=== PATIENT | female | born 1965 | race Caucasian/White ===

== ENCOUNTER 2016-06-29 16:08 | Outpatient (CLI) ==
[2013-11-12 14:37] VITALS: BMI 28.8
--- NOTE | 2016-06-29 16:34 | DI ---
EXAM: Three x-rays of the left shoulder. Comparison: Chest x-ray performed on 03/28/2011. Reason for study: Left shoulder pain, pain in lateral aspect of clavicle. FINDINGS: No acute fracture or dislocation. The humeral head articulates with the bony glenoid. T he acromioclavicular joint spaces well maintained. The clavicle is intact. The scapular Y-view is u nremarkable. Impression: No acute fracture or dislocation in the left shoulder.
== END 2016-06-29 16:09 | disposition home or self-care (01) ==
LOC: RAD 16:08
PROVIDERS: ATTEND Family Medicine
DX: M25.512 Pain in left shoulder (principal)

== ENCOUNTER 2016-07-31 09:27 | Emergency (ER) ==
[2016-07-31 09:32] VITALS: BP 163/89; TEMP 98.2; BMI 31.7
[2016-07-31] MEDS: LIDOCAINE 1 % AMP 5 ML (SUTURES) SUBCUT STA (09:57)
--- NOTE | 2016-07-31 09:57 | ED.PDOC ---
General ED Provider: Dr. SONNY TAY-ER Chief Complaint: Finger Pain/Injury Stated Complaint: my fingernail edge is swollen and red Time Seen by Physician: 09:55 Mode of Arrival: Walk-In Information Source: Patient Exam Limitations: No limitations Primary Care Provider: SONNY TAY Nursing and Triage Documentation Reviewed and Agree: Yes Skin Complaint Exam - Skin/Soft Tissue Complaint/Exam Onset/Duration: 2 days Symptoms Are: Still present Timing: Constant Initial Severity: Mild Current Severity: Mild Location: lateral edge of the right middle finger Character: Reports: Redness, Swelling, Raised, Painful Aggravating: Reports: Touch Alleviating: Reports: None Associated Signs and Symptoms: Reports: Tenderness. Denies: Fever, Chills, Itching, Drainage, Bruising, Red streaks, Joint swelling Related History: Reports: Similar episode Related Surgical History: Reports: None Recent Exposure to Others w/Similar Symptoms: No Skin Findings: Present: Erythema, Induration, Pustules Joint Tenderness Present: No Differential Diagnoses: Abscess, Other Review of Systems - Review Of Systems Constitutional: Reports: No symptoms Eyes: Reports: No symptoms Ears, Nose, Mouth, Throat: Reports: No symptoms Respiratory: Reports: No symptoms Cardiac: Reports: No symptoms GI: Reports: No symptoms : Reports: No symptoms Musculoskeletal: Reports: No symptoms Skin: Reports: Change in hair/nails Neurological: Reports: No symptoms Endocrine: Reports: No symptoms Hematologic/Lymphatic: Reports: No symptoms All Other Systems: Reviewed and Negative Past Medical History - Past Medical History Endocrine: Reports: Unknown Cardiovascular: Reports: Unknown Respiratory: Reports: Unknown Hematological: Reports: Unknown Gastrointestinal: Reports: Unknown Genitourinary: Reports: Unknown Neuro/Psych: Reports: Unknown Musculoskeletal: Reports: Unknown Cancer: Reports: Unknown Last Menstrual Period: 3 weeks ago - Surgical History General Surgical History: Reports: Unknown - Family History Family History: Reports: Unknown - Social History Smoking Status: Never smoker Hx Substance Use: No Alcohol Screening: None Physical Exam - Physical Exam Appearance: Well-appearing, No pain distress, Well-nourished Pain Distress: Mild Eyes: NICK, EOMI, Conjunctiva clear ENT: Ears normal, Nose normal, Oropharynx normal Neck: Supple Respiratory: Airway patent, Breath sounds clear, Breath sounds equal, Respirations nonlabored Cardiovascular: RRR, Pulses normal, No rub, No murmur GI/: Soft, Nontender, No masses, Bowel sounds normal, No Organomegaly Musculoskeletal: Normal strength, ROM intact, No edema, No calf tenderness Skin: Warm Neurological: Sensation intact, Motor intact, Reflexes intact, Cranial nerves intact, Alert, Oriented Psychiatric: Affect appropriate, Mood appropriate Procedures - Incision and Drainage Site: right middle finger Instrument Used: 11 Blade I & D Procedure: Yes: Hibiclens Prep Lidocaine Used: Yes Type of Drainage: Present: Pus, Blood Irrigated: No Critical Care Note - Critical Care Note Total Time (mins): 0 Course - Course Orders, Labs, Meds: Orders Category Date Time Status Wound [ED WOUND CARE] .ONCE EMERGENCY 07/31/16 09:53 Active Vital Signs: Temp Pulse Resp BP Pulse Ox 07/31/16 09:27 98.2 F 116 H 20 163/89 H 99 Departure - Departure Time of Disposition: 09:57 Disposition: HOME SELF-CARE Discharge Problem: Paronychia Qualifiers: Laterality: right Qualifier Code: (L03.011) Cellulitis of right finger Instructions: Paronychia (ED) Condition: Good Pt referred to PMD for follow-up: Yes Additional Instructions: continue antbx--use bacitracin ointment on wound bid --norco 7.5mg q 4hrs prn pain #6--keep elevated--call my office on tuesday for cultdure results Allergies/Adverse Reactions: Allergies Penicillins Adverse Reaction (Verified 07/31/16 09:32) Sulfa (Sulfonamide Antibiotics) Adverse Reaction (Verified 07/31/16 09:32) Home Medications: Ambulatory Orders Diltiazem HCl [Cardizem] 2 tab PO BID 04/23/13 Pantoprazole Sodium [Protonix] 1 tab PO BID 04/23/13 Losartan Potassium [Cozaar] 100 mg PO DAILY 11/12/13 Norethindrone AC-Eth Estradiol [Loestrin] 1 each PO DAILY 11/12/13 Cyanocobalamin (Vitamin B-12) [Vitamin B-12] 1,000 mcg PO DAILY 11/13/15 Disposition Discussed With: Patient
== END 2016-07-31 10:17 | disposition home or self-care (01) ==
LOC: ED 09:27
DX: L03.011 Cellulitis of right finger (principal)
CPT/HCPCS: 87070; 99282

== ENCOUNTER 2016-09-07 07:58 | Outpatient (CLI) | payer OTHER ==
--- NOTE | 2016-09-08 09:27 | MAMMO ---
EXAM: Bilateral digital screening mammogram History: Screening Comparison: Bilateral mammogram 09/04/2015 Findings: MLO and CC views of bilateral breasts demonstrate scattered fibroglandular breast parench yma. Stable benign right breast calcifications. There are no dominant masses, no suspicious microc alcifications and no architectural distortions Impression: Benign stable mammogram. Recommend followup routine screening mammography in 1 year. BIRADS 2
== END 2016-09-07 07:59 | disposition home or self-care (01) ==
LOC: RAD 07:58
PROVIDERS: ATTEND Advanced Practice Midwife
DX: Z12.31 Encounter for screening mammogram for malignant neoplasm of breast (principal)

== ENCOUNTER 2016-09-15 11:05 | Outpatient (CLI) ==
[2016-09-15 11:20] LABS: BILIRUBIN,URINE Negative (NEGATIVE); KETONES,URINE Negative (NEGATIVE); LEUKOCYTE ESTERASE ,URINE 1+ (NEGATIVE); NITRITE,URINE Positive (NEGATIVE); PH,URINE 5.5 (5-9); PROTEIN,URINE Negative (NEGATIVE); URINE, BLOOD Negative (NEGATIVE)
[2016-09-15 11:27] LABS: ADD URINE MICROSCOPIC YES
[2016-09-15 11:28] LABS: BACTERIA,URINE 2+ (NOT PRESENT)
== END 2016-09-15 11:06 | disposition home or self-care (01) ==
LOC: LAB 11:05
PROVIDERS: ATTEND Family Medicine
DX: R30.0 Dysuria (principal)
CPT/HCPCS: 81001; 87086; 87186

== ENCOUNTER 2016-10-06 09:47 | Outpatient (CLI) ==
[2016-10-06 09:59] LABS: BILIRUBIN,URINE Negative (NEGATIVE); KETONES,URINE Negative (NEGATIVE); LEUKOCYTE ESTERASE ,URINE Trace (NEGATIVE); NITRITE,URINE Negative (NEGATIVE); PROTEIN,URINE Negative (NEGATIVE); URINE, BLOOD 2+ (NEGATIVE)
[2016-10-06 10:23] LABS: ADD URINE MICROSCOPIC YES
[2016-10-06 10:25] LABS: BACTERIA,URINE 1+ (NOT PRESENT)
== END 2016-10-06 09:48 | disposition home or self-care (01) ==
LOC: LAB 09:47
PROVIDERS: ATTEND Family Medicine
DX: R30.0 Dysuria (principal)
CPT/HCPCS: 81001; 87086

== ENCOUNTER 2016-10-15 10:31 | Outpatient (CLI) ==
[2016-10-15 10:41] LABS: BILIRUBIN,URINE Negative (NEGATIVE); KETONES,URINE Negative (NEGATIVE); LEUKOCYTE ESTERASE ,URINE Trace (NEGATIVE); NITRITE,URINE Negative (NEGATIVE); PROTEIN,URINE Negative (NEGATIVE); URINE, BLOOD Trace-intact (NEGATIVE)
[2016-10-15 10:55] LABS: ADD URINE MICROSCOPIC YES
[2016-10-15 10:58] LABS: BACTERIA,URINE 1+ (NOT PRESENT)
== END 2016-10-15 10:32 | disposition home or self-care (01) ==
LOC: LAB 10:31
PROVIDERS: ATTEND Family Medicine
DX: R30.0 Dysuria (principal)
CPT/HCPCS: 81001; 87086

== ENCOUNTER 2016-12-02 07:59 | Outpatient (CLI) ==
[2016-12-02 08:30] LABS: BASOPHILS # (AUTO) 0.1 K/uL (0-0.2); BASOPHILS % (AUTO) 0.8 % (0.0-3.0); EOSINOPHILS # (AUTO) 0.1 K/ul (0.0-0.7); EOSINOPHILS % (AUTO) 1.8 % (0.0-7.0); HEMATOCRIT 38.5 % (37.0-47.0); HEMOGLOBIN 12.6 g/dl (12.0-16.0); IMMATURE GRANULOCYTE % (AUTO) 0.6 % (0.0-5.0); LYMPHOCYTES # (AUTO) 1.7 K/uL (0.60-3.4); LYMPHOCYTES % (AUTO) 26.5 (10.0-50.0); MEAN CORPUSCULAR HEMOGLOBIN 26.2 pg (27.0-31.0); MEAN CORPUSCULAR HGB CONC 32.7 (31.8-35.4); MONOCYTES # (AUTO) 0.5 K/uL (0.4-2.0); NEUTROPHILS # (AUTO) 4.1 K/ul (2.0-6.9); NEUTROPHILS % (AUTO) 62.3; PLATELET COUNT 269 10^3/uL (140-440); RED BLOOD COUNT 4.81 10^6/ul (4.20-5.40); WHITE BLOOD COUNT 6.53 K/ul (4.6-10.2)
[2016-12-02 08:47] LABS: ALBUMIN 3.3 g/dL (3.4-5.0); ALBUMIN/GLOBULIN RATIO 0.79; ANION GAP 15.2; BILIRUBIN,TOTAL 0.43 mg/dL (0.00-1.20); BUN/CREATININE RATIO 15.73; CALCIUM 9.7 mg/dL (8.2-10.2); CREATININE 0.89 mg/dL (0.60-1.30); POTASSIUM 4.2 mmol/L (3.5-5.10); TOTAL PROTEIN 7.5 g/dL (6.4-8.2)
== END 2016-12-02 08:00 | disposition home or self-care (01) ==
LOC: LAB 07:59
PROVIDERS: ATTEND Family Medicine
DX: Z00.00 Encounter for general adult medical examination without abnormal findings (principal)
CPT/HCPCS: 36415; 80053; 80061; 80323; 85025

== ENCOUNTER 2017-04-15 13:49 | Outpatient (CLI) | payer OTHER | END 2017-04-15 13:50 | disposition home or self-care (01) | LOC: LAB 13:49 | PROVIDERS: ATTEND Family Medicine | DX: R30.0 Dysuria (principal) | CPT/HCPCS: 81001; 87086 ==

== ENCOUNTER 2017-07-04 11:30 | Outpatient (CLI) ==
--- NOTE | 2017-07-04 12:46 | DI ---
Exam: Two x-rays of the chest. Comparison: 03/28/2011. Reason for exam: Bronchitis. FINDINGS: No pneumothorax, pleural effusion, or focal consolidation. The cardiac silhouette is not enlarged. The imaged osseous structures appear grossly unremarkable without acute fracture. Impression: No acute cardiopulmonary process.
== END 2017-07-04 11:31 | disposition home or self-care (01) ==
LOC: RAD 11:30
PROVIDERS: ATTEND Family Medicine
DX: J40 Bronchitis, not specified as acute or chronic (principal)

== ENCOUNTER 2017-07-25 14:12 | Outpatient (CLI) | END 2017-07-25 14:13 | disposition home or self-care (01) | LOC: LAB 14:12 | PROVIDERS: ATTEND Family Medicine | DX: R63.1 Polydipsia (principal) | CPT/HCPCS: 36415; 82947; 83036 ==

== ENCOUNTER 2017-09-14 07:06 | Outpatient (CLI) | payer OTHER ==
--- NOTE | 2017-09-14 09:26 | MAMMO ---
EXAM: Bilateral digital screening mammogram (2-D and 3-D) History: Screening Comparison: Bilateral mammogram 09/07/2016 Findings: MLO and CC views of bilateral breasts demonstrate scattered fibroglandular breast parenchy ma. Stable benign calcifications within the right breast. CAD was reviewed by the radiologist. Srikanth osynthesis was performed. There are no dominant masses and no suspicious microcalcifications. No arc hitectural distortions Impression: Benign stable mammogram. Recommend followup routine screening mammography in 1 year. BIRADS 2
== END 2017-09-14 07:07 | disposition home or self-care (01) ==
LOC: RAD 07:06
PROVIDERS: ATTEND Nurse Practitioner Women's Health
DX: Z12.31 Encounter for screening mammogram for malignant neoplasm of breast (principal)
CPT/HCPCS: 77067

== ENCOUNTER 2017-10-31 06:38 | Outpatient (CLI) | END 2017-10-31 06:39 | LOC: LAB 06:38 | PROVIDERS: ATTEND Emergency Medicine | DX: E11.9 Type 2 diabetes mellitus without complications (principal); E78.5 Hyperlipidemia, unspecified; I10 Essential (primary) hypertension | CPT/HCPCS: 36415; 80053; 80061; 83036; 84443; 85025 ==

== ENCOUNTER 2018-01-05 08:20 | Outpatient (CLI) | payer OTHER | END 2018-01-05 08:21 | disposition home or self-care (01) | LOC: LAB 08:20 | PROVIDERS: ATTEND Internal Medicine Gastroenterology | DX: K76.0 Fatty (change of) liver, not elsewhere classified (principal) | CPT/HCPCS: 36415; 80053; 85025 ==

== ENCOUNTER 2018-03-24 | Outpatient (CLI) | END 2018-03-24 07:12 | disposition home or self-care (01) | CPT/HCPCS: 36415; 80053; 80061; 83036; 85025 ==

== ENCOUNTER 2018-07-24 07:30 | Outpatient (CLI) ==
--- NOTE | 2018-07-24 10:11 | US ---
EXAM: Ultrasound of the left axilla. History: Left axillary pain. Technique: Multiple sonographic images through the left axilla were obtained. Color duplex Doppler was used to interrogate vascular flow. Findings: No masses, cysts or fluid collections identified. No lymph nodes were seen. Impression: Unremarkable exam
== END 2018-07-24 07:31 | disposition home or self-care (01) ==
LOC: RAD 07:30
PROVIDERS: ATTEND Family Medicine
DX: M79.622 Pain in left upper arm (principal); R53.83 Other fatigue
CPT/HCPCS: 36415; 76882; 80053; 82043; 83036; 84443; 85025; 85651

== ENCOUNTER 2018-08-23 10:32 | Outpatient (CLI) | END 2018-08-23 10:33 | disposition home or self-care (01) | LOC: LAB 10:32 | PROVIDERS: ATTEND Family Medicine | DX: R70.0 Elevated erythrocyte sedimentation rate (principal) | CPT/HCPCS: 36415; 85651 ==

== ENCOUNTER 2018-08-29 10:24 | Emergency (ER) | payer OTHER ==
[2018-08-29 10:31] VITALS: BP 146/84; TEMP 96.4; BMI 31.5
--- NOTE | 2018-08-29 11:13 | ED.PDOC ---
General ED Provider: Dr. IVAN ZAMORA Chief Complaint: Dizziness Stated Complaint: water in r ear,tendency to overconpensate to the right Time Seen by Physician: 10:45 Mode of Arrival: Wheelchair Information Source: Patient Exam Limitations: No limitations Primary Care Provider: SONNY TAY Nursing and Triage Documentation Reviewed and Agree: Yes Does patient meet sepsis criteria?: No System Inflammatory Response Syndrome: Not Applicable Sepsis Protocol: For patient's 13 years and over: Temp is 96.8 and below OR 101 and greater Pulse >90 BPM Resp >20/minute Acutely Altered Mental Status Are patient's symptoms suggestive of a new infection, such as: -Pneumonia -Skin, Soft Tissue -Endocarditis -UTI -Bone, Joint Infection -Implantable Device -Acute Abdominal Infection -Wound Infection -Meningitis -Blood Stream Catheter Infection -Unknown EENT Complaint Exam - Ear Complaint/Exam Onset/Duration: today Symptoms Are: Still present Timing: Intermittent Initial Severity: Mild Current Severity: Mild Character: Reports: Dizzy Aggravating: Reports: Position Alleviating: Reports: OTC Meds Associated Signs and Symptoms: Reports: Sore throat Related History: Reports: Similar Episode Ear Surgical History: None Vesicles to External Pinna: Yes Vesicles to Tragus: Yes TMJ Tenderness: None Mastoid Tenderness: None Tragal Tenderness: None External Canal: Normal Material in Canal: Present: Cerumen Tympanic Membrane: Bulging Differential Diagnoses: Otitis Media, Serous Otitis Review of Systems - Review Of Systems Constitutional: Reports: No symptoms Eyes: Reports: No symptoms Ears, Nose, Mouth, Throat: Reports: No symptoms Respiratory: Reports: No symptoms Cardiac: Reports: No symptoms GI: Reports: No symptoms : Reports: No symptoms Musculoskeletal: Reports: No symptoms Skin: Reports: No symptoms Neurological: Reports: No symptoms Endocrine: Reports: No symptoms Hematologic/Lymphatic: Reports: No symptoms All Other Systems: Reviewed and Negative Past Medical History - Past Medical History Endocrine: Reports: Unknown Cardiovascular: Reports: Unknown Respiratory: Reports: Unknown Hematological: Reports: Unknown Gastrointestinal: Reports: Unknown Genitourinary: Reports: Unknown Neuro/Psych: Reports: Unknown Musculoskeletal: Reports: Unknown Cancer: Reports: Unknown Last Menstrual Period: VERY MINIMAL - Surgical History General Surgical History: Reports: Unknown - Family History Family History: Reports: Unknown - Social History Smoking Status: Never smoker Hx Substance Use: No Alcohol Screening: None Physical Exam - Physical Exam Appearance: Well-appearing Ill-appearing: None Pain Distress: None Eyes: NICK, EOMI, Conjunctiva clear ENT: Ears normal, Nose normal, Oropharynx normal Respiratory: Airway patent, Breath sounds clear, Breath sounds equal Cardiovascular: RRR, Pulses normal GI/: Soft, Nontender Musculoskeletal: Normal strength Skin: Warm, Dry, Normal color Neurological: Sensation intact, Alert, Oriented Psychiatric: Affect appropriate Critical Care Note - Critical Care Note Total Time (mins): 0 Course - Course Vital Signs: Temp Pulse Resp BP Pulse Ox 08/29/18 10:28 96.4 F L 87 18 146/84 H 100 Departure - Departure Time of Disposition: 12:35 Disposition: HOME SELF-CARE Discharge Problem: Serous otitis media Instructions: Benign Paroxysmal Positional Vertigo (ED) Condition: Good Pt referred to PMD for follow-up: Yes IPMP verified?: No Additional Instructions: Benmadryl 50 mg bid PO prn,Scopolamine patch. Allergies/Adverse Reactions: Allergies paroxetine HCl [From Paxil] Allergy (Severe, Unverified 08/29/18 10:25) nausea zolpidem tartrate [From Ambien] Allergy (Severe, Unverified 08/29/18 10:25) confusion Patient will notify drugstore azithromycin [From Zithromax] Allergy (Mild, Unverified 08/29/18 10:25) rash ciprofloxacin [From Cipro] Allergy (Mild, Unverified 08/29/18 10:25) rash ciprofloxacin HCl [From Cipro] Allergy (Mild, Unverified 08/29/18 10:25) rash clarithromycin [From Biaxin] Allergy (Mild, Unverified 08/29/18 10:25) rash Penicillins Adverse Reaction (Verified 08/29/18 10:25) Sulfa (Sulfonamide Antibiotics) Adverse Reaction (Verified 08/29/18 10:25) Home Medications: Ambulatory Orders Norethindrone AC-Eth Estradiol [Loestrin] 1 each PO DAILY 11/12/13 Cyanocobalamin (Vitamin B-12) [Vitamin B-12] 1,000 mcg PO DAILY 11/13/15 Disposition Discussed With: Patient, Family
[2018-08-29] MEDS ORDERED: SODIUM CHLORIDE 500 ML IV STA (11:21)
[2018-08-29] MEDS ORDERED: BENADRYL 25 MG in SODIUM CHLORIDE 100 ML IV STA (11:21)
[2018-08-29] MEDS ORDERED: BENADRYL ONE (11:45)
== END 2018-08-29 13:46 | disposition home or self-care (01) ==
LOC: ED 10:24
DX: H65.90 Unspecified nonsuppurative otitis media, unspecified ear (principal)
CPT/HCPCS: 96365; 99283

== ENCOUNTER 2018-09-05 14:53 | Outpatient (POV) | END 2018-09-05 17:00 | LOC: OUTPT 14:53 | PROVIDERS: ATTEND Otolaryngology | DX: R42 Dizziness and giddiness (principal) | CPT/HCPCS: 92552; 92567 ==

== ENCOUNTER 2018-09-21 07:09 | Outpatient (CLI) | payer OTHER ==
--- NOTE | 2018-09-22 10:13 | MAMMO ---
EXAM: Digital screening mammogram with Tomosynthesis HISTORY: Screening COMPARISON: 09/14/2017 FINDINGS: Digital MLO and CC views of the right and left breast were performed. Tomosynthesis was performed. Computer aided detection utilized. There are scattered fibroglandular densities. There i s no evidence for mass, asymmetry, distortion, or suspicious calcifications in either breast. IMPRESSION: 1. No evidence of malignancy in the right or left breast. 2. Annual screening mammogram is recommended in one year. BIRADS category 1, negative examination
== END 2018-09-21 07:10 | disposition home or self-care (01) ==
LOC: RAD 07:09
PROVIDERS: ATTEND Advanced Practice Midwife
DX: Z12.31 Encounter for screening mammogram for malignant neoplasm of breast (principal); Z13.820 Encounter for screening for osteoporosis